=== PATIENT | male | born 1935 | race Caucasian/White ===

== ENCOUNTER 2016-06-09 04:57 | Observation (INO) | payer OTHER ==
[~2016-06-09] VITALS: Ht 165.1 cm; Wt 79.5 kg
[2016-06-09] VITALS (8 sets, daily range): BP systolic 119–159; BP diastolic 60–72; PULSE 51–98; RESP 16–18; Ht 165.1 cm; Wt 79.5 kg
[~2016-06-09 04:57] MED LIST: CRES10 PO; METO-103 PO; PRADAXA PO
[2016-06-09] MEDS ORDERED: ASPIRIN 325 MG TAB PO STA (05:04)
[2016-06-09 05:52] LABS: ADD SCAN DIFF NO
--- NOTE | 2016-06-09 05:59 | RADRPT ---
PROCEDURE: Chest. CLINICAL INDICATION: Chest pain. TECHNIQUE: Single frontal view of the chest was obtained. COMPARISON: None. FINDINGS: Mediasternotomy wires are present. The cardiac silhouette is within normal limits. The aortic arch is unremarkable. There is no focal consolidation, vascular congestion or pleural effusion. There is no pneumothorax. IMPRESSION: No evidence for active cardiopulmonary disease. .Nicholas Way MD, Date Time Electronically viewed and signed by .Nicholas Way MD, on 06/09/2016 05:58 .T/
[2016-06-09 06:01] LABS: CHLORIDE 105 mmol/L (97-110); POTASSIUM 4.5 mmol/L (3.5-5.1); SODIUM 140 mmol/L (135-144)
[2016-06-09 06:04] LABS: ANION GAP 14 (8-16); BASOPHILS % 0.2 % (0.0-2.0); CARBON DIOXIDE 26 mmol/L (21-31); CREATININE 1.67 mg/dl (0.61-1.24); EOSINOPHILS % 0.2 % (0.0-7.0); HEMATOCRIT 40.1 % (42.0-52.0); HEMOGLOBIN 13.4 g/dl (14.0-18.0); LYMPHOCYTES # 0.7 10^3/ul (0.8-2.9); LYMPHOCYTES % 7.8 % (15.0-51.0); MEAN CORPUSCULAR HEMOGLOBIN 30.7 pg (29.0-33.0); MEAN CORPUSCULAR HGB CONC 33.4 g/dl (32.0-37.0); MEAN PLATELET VOLUME 10.8 fl (7.4-10.4); MONOCYTE # 0.3 10^3/ul (0.3-0.9); MONOCYTES % 2.9 % (0.0-11.0); NEUTROPHIL # 8.3 10^3/ul (1.6-7.5); NEUTROPHILS % 88.4 % (39.0-77.0); PLATELET COUNT 211 10^3/UL (140-415); RED BLOOD COUNT 4.36 10^6/ul (4.70-6.10); RED CELL DISTRIBUTION WIDTH 11.9 % (11.5-14.5); WHITE BLOOD COUNT 9.4 10^3/ul (4.8-10.8)
[2016-06-09 06:05] LABS: BLOOD UREA NITROGEN 31 mg/dl (7-20); CALCIUM 9.4 mg/dl (8.4-10.2); GLUCOSE 157 mg/dl (70-220)
[2016-06-09 06:07] LABS: INR 1.12; PARTIAL THROMBOPLASTIN TIME 32.8 Sec (25.0-35.0); PROTIME 14.4 Sec (12.2-14.2); PT RATIO 1.1
[2016-06-09 06:19] LABS: TROPONIN-I < 0.012 ng/ml (0.00-0.12)
--- NOTE | 2016-06-09 06:46 | ERA ---
ER Documentation Chief Complaint Date/Time DATE: 06/09/16 TIME: 06:41 Chief Complaint chest pain for 5 hours, nonradiating HPI Patient is a 80-year-old male with history of prior heart attack, status post CABG, who presents with sudden onset, constant, pressure-like substernal chest pain radiating to the epigastrium that awoke him from sleep at 2 AM. The patient subsequently had 2 episodes of vomiting, but the pain did not subside. The patient was brought to the hospital by ambulance, and pain subsided at approximately 5 AM. Patient is currently pain-free. She denies having experienced dyspnea, radiation of pain, fever, cough, diarrhea, back pain. ROS All systems reviewed and are negative except as per history of present illness. Medications Home Meds Reported Medications [Pradaxa] No Conflict Check, 150 PO DAILY 07/02/11 Rosuvastatin Calcium* (Crestor*) 10 Mg Tablet, 10 MG PO DAILY 02/26/11 Metoprolol Succinate (Toprol Xl) 50 Mg Tab.sr.24h, 50 MG PO DAILY 02/26/11 Allergies Allergies: Coded Allergies: No Known Drug Allergy (Verified Allergy, Unknown, 07/09/11) PMhx/Soc Past medical history: Coronary artery disease, hypertension Past surgical history: CABG 4 Social history: Former smoker, former alcohol History of Surgery: Yes (PROSTATE BIOPSY) Anesthesia Reaction: No Hx Neurological Disorder: No Hx Respiratory Disorders: No Hx Cardiac Disorders: Yes (MD) Hx Psychiatric Problems: No Hx Miscellaneous Medical Probl: No Hx Alcohol Use: No Hx Substance Use: No Hx Tobacco Use: No Smoking Status: Former smoker FmHx Family History: No coronary disease, No diabetes Physical Exam Vitals Vital Signs Date Time Temp Pulse Resp B/P Pulse Ox O2 Delivery O2 Flow Rate FiO2 06/09/16 06:04 59 16 135/72 99 Room Air 06/09/16 05:14 Nasal Cannula 2 06/09/16 05:00 97.5 71 18 124/86 98 Physical Exam Const: Alert, no acute distress Head: Atraumatic Eyes: Normal Conjunctiva, no pallor or icterus ENT: Normal External Ears, Nose and Mouth. Neck: Full range of motion. No JVD. No meningismus. Resp: Clear to auscultation bilaterally, trace bibasilar rales, no wheeze Cardio: Regular rate and rhythm, no murmurs, no gallop, midline sternotomy scar Abd: Soft, non tender, non distended. No guarding or rebound Skin: No petechiae or rashes Back: No midline or flank tenderness Ext: No cyanosis, or edema Neur: Awake and alert, cranial nerves II through XII intact bilaterally, strength and sensation intact in 4 extremities. Psych: Normal Mood and Affect Result Diagram: 06/09/16 0510 06/09/16 0510 Results 24 hrs Laboratory Tests Test 06/09/16 05:10 White Blood Count 9.410^3/ul Red Blood Count 4.3610^6/ul Hemoglobin 13.4g/dl Hematocrit 40.1% Mean Corpuscular Volume 92.0fl Mean Corpuscular Hemoglobin 30.7pg Mean Corpuscular Hemoglobin Concent 33.4g/dl Red Cell Distribution Width 11.9% Platelet Count 64445^3/UL Mean Platelet Volume 10.8fl Neutrophils % 88.4% Lymphocytes % 7.8% Monocytes % 2.9% Eosinophils % 0.2% Basophils % 0.2% Nucleated Red Blood Cells % 0.0/100WBC Neutrophils # 8.310^3/ul Lymphocytes # 0.710^3/ul Monocytes # 0.310^3/ul Eosinophils # 0.010^3/ul Basophils # 0.010^3/ul Nucleated Red Blood Cells # 0.010^3/ul Prothrombin Time 14.4Sec Prothrombin Time Ratio 1.1 INR International Normalized Ratio 1.12 Activated Partial Thromboplast Time 32.8Sec Sodium Level 140mmol/L Potassium Level 4.5mmol/L Chloride Level 105mmol/L Carbon Dioxide Level 26mmol/L Anion Gap 14 Blood Urea Nitrogen 31mg/dl Creatinine 1.67mg/dl Glucose Level 157mg/dl Calcium Level 9.4mg/dl Troponin I < 0.012ng/ml Current Medications Medications (Trade) Dose Ordered Sig/Kia Route PRN Reason Start Time Stop Time Status Last Admin Dose Admin Aspirin (Aspirin) 325 mg ONCE STAT PO 06/09/16 05:04 06/09/16 05:05 DC 06/09/16 05:31 Procedures/MDM EKG read by me: Time 507, rate 62 Rhythm: [Normal sinus] [place]: Left axis deviation Intervals: Right bundle branch block ST-T waves: Nonspecific changes Ectopy: Occasional PVCs Q-waves: Inferior Q waves Impression: Right bundle branch block, prior inferior MD, nonspecific ST changes Chest x-ray: FINDINGS: Mediasternotomy wires are present. The cardiac silhouette is within normal limits. The aortic arch is unremarkable. There is no focal consolidation, vascular congestion or pleural effusion. There is no pneumothorax. IMPRESSION: No evidence for active cardiopulmonary disease. MDM: Patient is a 80-year-old male with history of coronary artery disease status post CABG who presents with pressure-like chest pain, single episode lasting 3 hours associated with vomiting. Patient is high risk, and there are high risk features to the patient's history. EKG has nonspecific findings and first troponin is negative, but given patient's history and lack of a recent stress test, the patient will need further cardiac workup. The patient received aspirin and nitroglycerin prior to ER arrival, and is currently chest pain-free. Discussed with Dr. Dietz, who will admit the patient to observation status. Departure Diagnosis: Primary Impression: Chest pain Qualified Code: R07.2 - Precordial pain Condition: Stable REN PATEL MD Jun 09, 2016 06:46
[2016-06-09] MEDS ORDERED: ONDANSETRON 4 MG INJ IV PRN (08:30)
[2016-06-09] MEDS ORDERED: ACETAMINOPHEN 325 MG TAB PO PRN ×2 (08:30→12:00)
--- NOTE | 2016-06-09 10:24 | CONS ---
DATE OF ADMISSION: 06/09/2016 DATE OF CONSULTATION: 06/09/2016 CARDIAC CONSULTATION HISTORY OF PRESENT ILLNESS: Mr. Cutler is a 80-year-old gentleman with history of CAD status post C ABG 4 years ago. He presents with 4 hours of chest pressure that began at 2:00 a.m. and did have so me vomiting. The patient called EMS and was given a "pill" which appears to have been nitroglycerin , and the pain was relieved. REVIEW OF SYSTEMS: Negative except as per chart. The patient reports that he does have similar sym ptoms approximately every 6 months. On last occasion, he was admitted at [facility]. He believes he had a stress test at that time but is unsure. HOME MEDICATIONS: 1. Pradaxa. 2. Metoprolol. 3. Rosuvastatin. ALLERGIES: NO KNOWN ALLERGIES. FAMILY HISTORY: No family history. PHYSICAL EXAMINATION: GENERAL: In no distress. VITAL SIGNS: Temperature 97.5, pulse 69, blood pressure 135/72, oxygen saturation 97%. LUNGS: Clear. CARDIAC: Regular rate and rhythm. No murmurs appreciated. ABDOMEN: Soft, nontender, nondistended. LABORATORY DATA: CBC reviewed. White count 9.4, hematocrit 40, platelet count 211. Sodium 140, po tassium 4.5, BUN 31, creatinine 1.6. Troponin less than 0.012. INR 1.1. DIAGNOSTIC DATA: EKG shows sinus rhythm with right bundle branch block. Chest x-ray status post CA BG, otherwise unremarkable. ASSESSMENT AND PLAN: The patient with cardiac history with chest pain. We will order echocardiogra m and serial troponins to rule out acute coronary syndrome. He reportedly had stress test 6 months ago. We will decide about repeat stress test depending on the findings of the above-mentioned tests . Dictated By: SAGE CORONEL/FELIPE Conf#: [id number] DID#: [id number]
--- NOTE | 2016-06-09 10:51 | RADRPT ---
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 Physician: JEFF STRINGER Quality: Technically Difficult Study Procedures: Transthoracic echocardiogram with complete 2D, M-Mode, and doppler examination. Indications: Chest Pain. 2D/M Mode Doppler Measurement Value Normal Ranges Measurement Value Normal Ranges LVIDd 2D 4.9 3.5 - 5.6 cm AV Peak Jose Raul 1.5 m/sec LVIDs 2D 3.5 2.1 - 4.1 cm AV Peak PG 9.0 mmHg FS 2D 30.0 % LVOT Peak Jose Raul 0.8 m/sec LVPWd 2D 1.3 0.6 - 1.1 cm LVOT Peak PG 2.0 mmHg IVSd 2D 1.3 0.6 - 1.1 cm MV E Peak Jose Raul 0.6 m/sec IVS/LVPW 2D 1.0 MV A Peak Jose Raul 1.0 m/sec AoR Diam 2D 2.6 2.0 - 3.7 cm MV E/A 0.7 LA/Ao 2D 1 0 - 1 MV Decel Time 423 msec EDV 2D 120.0 cm3 MV E/A 0.7 ESV 2D 41.1 cm3 MR Peak PG 69.0 mmHg LA Dimen 2D 3.5 2.3 - 4.0 cm MR Peak Jose Raul 4.2 m/sec PV Accel Time 85 msec Findings Left Ventricle: Normal left ventricular cavity size. Mild concentric left ventricular hypertrophy. Moderate global left ventricular systolic dysfunction. Ejection fraction is visually estimated at 35 %. Tissue Doppler/Mitral Doppler indices are consistent with impaired relaxation (Stage I diastolic dysfunction). Right Ventricle: Normal right ventricular size. Normal right ventricular systolic function. Left Atrium: Upper limit of normal left atrial size. Right Atrium: The right atrium is normal in size. Mitral Valve: Mild mitral leaflet calcification. Mild mitral annular calcification. Mild mitral valve regurgitation. Aortic Valve: Trileaflet aortic valve. Trace aortic valve regurgitation. Tricuspid Valve: Tricuspid valve not well visualized. There is trace tricuspid regurgitation. Pulmonic Valve: There is trace pulmonic regurgitation. Pericardium: Normal pericardium with no significant pericardial effusion. Aorta: Normal aortic root. IVC: Dilated IVC with respiratory collapse consistent with elevated right atrial pressure. Conclusions 1.Normal left ventricular cavity size. Mild concentric left ventricular hypertrophy. Moderate global left ventricular systolic dysfunction. Ejection fraction is visually estimated at 35 %. Tissue Doppler/Mitral Doppler indices are consistent with impaired relaxation (Stage I diastolic dysfunction). Electronically Signed By: Jeff Stringer 09-Jun-2016 10:50:52 -1900 Patient Name: GIGI PHILLIPS Study Date: 09-Jun-2016 [id number]
[2016-06-09] MEDS ORDERED: METO-448 PO (11:18)
[2016-06-09] MEDS ORDERED: LISI-313 PO (11:18)
[2016-06-09] MEDS ORDERED: DABI150C PO (11:18)
[2016-06-09] MEDS ORDERED: CRES10 PO (11:18)
[2016-06-09 11:55] LABS: CREATINE KINASE 26 IU/L (23-200)
[2016-06-09] MEDS ORDERED: morphine 2 MG INJ IV PRN (12:00)
[2016-06-09] MEDS ORDERED: LORAZEPAM 0.5 MG TAB PO PRN (12:00)
[2016-06-09] MEDS ORDERED: NACL 0.9% 3 ML SYG IV SCH (12:00)
[2016-06-09] MEDS ORDERED: NITROGLYCERIN (SL) 0.4 MG TAB SL PRN (12:00)
[2016-06-09] MEDS ORDERED: ONDANSETRON 4 MG TAB PO PRN (12:00)
[2016-06-09] MEDS ORDERED: DOCUSATE SODIUM 100 MG CAP PO PRN (12:00)
[2016-06-09 12:18] LABS: TROPONIN-I < 0.012 ng/ml (0.00-0.12)
[2016-06-09] MEDS: SOD CHLORIDE 0.45% 1,000 ML IV SCH (13:49)
[2016-06-09] MEDS: LISINOPRIL 5 MG TAB PO SCH (13:49)
--- NOTE | 2016-06-09 17:05 | HP ---
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 CHIEF COMPLAINT: Chest pain. HISTORY OF PRESENT ILLNESS: This is a pleasant 80-year-old gentleman with past medical history of m yocardial infarction, status post CABG, coronary artery disease, hypertension, dyslipidemia, whom wa s woken up at 3 a.m. on 06/09/2016 secondary to having severe anterior chest discomfort described as chest pain. The pain was in mid epigastric and substernal, nonradiating, not accompanied with any shortness of breath or diaphoresis. He called 911 and was brought into the emergency room at [facility] where his EKG showed right bundle branch block. Troponin was found to be neg ative. He was treated with aspirin 325 mg and states that by the time the patient arrived to the em ergency room, his chest pain resolved completely. He denied any other discomfort at this time. PAST MEDICAL AND SURGICAL HISTORY: As above per HPI. MEDICATIONS: 1. Pradaxa 150 mg. 2. Lisinopril 5 mg. 3. Lopressor 25 mg 4. Crestor 10 mg. ALLERGIES: NO KNOWN DRUG ALLERGIES. FAMILY HISTORY: Noncontributory secondary to advanced age. SOCIAL HISTORY: He used to smoke 5 cigarettes per day, quit about 20 years ago. No alcohol, no ill icit drugs. REVIEW OF SYSTEMS: Denies having any headache, dizziness, lightheadedness. No change in visual acu ity, diplopia, photophobia. No abdominal pain, no nausea, vomiting, diarrhea. No headache, dizzine ss. No change in the color of stool. Positive for chest pain. No shortness of breath, no diaphore sis. No heat and cold intolerance. No neck pain, no restricted range of motion in upper and lower extremity. No recent travel history. No sick contact. PHYSICAL EXAMINATION VITAL SIGNS: Temperature 97.5, pulse 60, respiration 19, blood pressure 108/60, oxygen 100% room ai r. GENERAL APPEARANCE: The patient is lying in bed comfortably without any acute distress. He is awak e, alert, oriented. He is able to answer my questions properly. EYES AND ENT: Conjunctivae and lids are normal. Pupils are normal. Extraocular normal. Hearing g rossly normal. Lips are normal. Oral mucosa is moist. NECK: Supple. Trachea is midline. No lymphadenopathy. RESPIRATORY: Effort is normal. Clear to auscultation bilaterally. CARDIOVASCULAR: Normal S1, S2. Regular rhythm and rate. No murmur, no bruits, no edema. Peripher al pulses palpable and capillary refill is normal. CHEST: Normal expansion of thorax during inspiration. GASTROINTESTINAL: Abdomen is soft, nontender, not distended. Bowel sounds present. No guarding, n o rebound. GENITOURINARY: Deferred. MUSCULOSKELETAL: Upper and lower extremities within normal limits. Full range of motion. Strength is 5/5 in both upper and lower extremities. NEUROLOGIC: Cranial nerves II through XII are grossly intact. PSYCHIATRIC: Normal judgment and insight. Alert and oriented x3. Mood and affect is normal. LABORATORY WORK AND IMAGING: WBC 9.4, hemoglobin 13.4, hematocrit 41.0, platelet 211. Sodium 140, potassium 4.1, chloride 105, bicarbonate 26, BUN 31, creatinine 1.67, glucose 157, calcium 9.4. Tro ponin negative x2. EKG shows right bundle branch block. IMAGING: Chest x-ray showed no evidence of acute cardiopulmonary disease. ASSESSMENT AND PLAN: 1. Chest pain with a history of coronary artery disease status post coronary artery bypass graft. Continue aspirin, Pradaxa, beta rachelle, statin. Cardiology has been consulted. So far, troponin x 2 has been negative. We will obtain 2D echocardiogram. Follow cardiology recommendations. 2. Essential hypertension, well controlled on medical management. 3. Dyslipidemia. Continue statin. Follow lipid panel in a.m. 4. History of coronary artery disease. Continue aggressive medical management. 5. For deep venous thrombosis prophylaxis, the patient has been placed on Lovenox. 6. For gastrointestinal prophylaxis, on proton pump inhibitor. 7. We will continue to monitor patient closely. Further recommendation, management and treatment a s per clinical course. Dictated By: CARY SARKAR MD PN/NTS Conf#: [id number] DID#: [id number]
[2016-06-09 19:30] LABS: CREATINE KINASE 24 IU/L (23-200)
[2016-06-09 19:39] LABS: CK-MB 0.41 ng/ml (0.0-2.4)
[2016-06-09 19:43] LABS: TROPONIN-I < 0.012 ng/ml (0.00-0.12)
[2016-06-09] MEDS: METOPROLOL 25 MG TAB PO SCH (20:32)
[2016-06-09] MEDS ORDERED: ATORVASTATIN 40 MG TAB PO SCH (21:00)
[2016-06-10] VITALS (8 sets, daily range): BP systolic 119–141; BP diastolic 65–73; PULSE 50–83; RESP 18–20
[2016-06-10] MEDS: SOD CHLORIDE 0.45% 1,000 ML IV SCH (05:27)
[2016-06-10] MEDS ORDERED: PANTOPRAZOLE (EC) 40 MG TAB PO SCH (06:00)
[2016-06-10 08:30] LABS: ADD SCAN DIFF NO
[2016-06-10 08:34] LABS: POTASSIUM 4.9 mmol/L (3.5-5.1)
[2016-06-10 08:36] LABS: CREATININE 1.59 mg/dl (0.61-1.24)
[2016-06-10 08:37] LABS: MAGNESIUM 1.8 mg/dl (1.7-2.5)
[2016-06-10 08:38] LABS: CHOL/HDL RATIO 5.6 RATIO
[2016-06-10 08:42] LABS: BASOPHILS % 0.5 % (0.0-2.0); EOSINOPHILS # 0.1 10^3/ul (0.0-0.5); EOSINOPHILS % 2.2 % (0.0-7.0); HEMATOCRIT 38.3 % (42.0-52.0); LYMPHOCYTES # 1.5 10^3/ul (0.8-2.9); LYMPHOCYTES % 25.5 % (15.0-51.0); MEAN CORPUSCULAR HEMOGLOBIN 31.3 pg (29.0-33.0); MEAN CORPUSCULAR HGB CONC 33.9 g/dl (32.0-37.0); MEAN CORPUSCULAR VOLUME 92.3 fl (82.0-101.0); MEAN PLATELET VOLUME 10.7 fl (7.4-10.4); MONOCYTE # 0.5 10^3/ul (0.3-0.9); MONOCYTES % 9.1 % (0.0-11.0); NEUTROPHIL # 3.7 10^3/ul (1.6-7.5); NEUTROPHILS % 62.2 % (39.0-77.0); PLATELET COUNT 178 10^3/UL (140-415); RED BLOOD COUNT 4.15 10^6/ul (4.70-6.10); RED CELL DISTRIBUTION WIDTH 12.4 % (11.5-14.5)
[2016-06-10] MEDS ORDERED: ENOXAPARIN 40 MG/0.4 ML SYG SC SCH (09:00)
[2016-06-10] MEDS ORDERED: DABIGATRAN 150 MG CAP PO SCH (09:00)
[2016-06-10] MEDS ORDERED: ASPIRIN 81 MG TAB PO SCH (09:00)
[2016-06-10] MEDS ORDERED: REGADENOSON 0.4 MG/5 ML SYG ONE (09:50)
--- NOTE | 2016-06-10 11:14 | CONS ---
Date/Time of Note Date/Time of Note DATE: 06/10/16 TIME: 11:12 Assessment/Plan Assessment/Plan Additional Assessment/Plan Chest pain CAD with history of CABG Cardiomyopathy with ejection fraction 35% Hypertension Paroxysmal atrial fibrillation -Patient denies further episodes of chest pain. Patient for nuclear cardiac perfusion study today. If results are negative for ischemia and no further symptoms, no further inpatient cardiac workup needed at the current time. Consultation Date/Type/Reason Admit Date/Time Jun 09, 2016 at 08:19 Initial Consult Date Type of Consultation: cv 24 HR Interval Summary Free Text/Dictation Patient denies further episodes of chest pain or shortness of breath. Denies dizziness or lightheadedness. Chest pain is not usually associated with activity. Exam/Review of Systems Vital Signs Vitals Vital Signs Date Time Temp Pulse Resp B/P Pulse Ox O2 Delivery O2 Flow Rate FiO2 06/10/16 08:19 54 06/10/16 07:55 97.9 20 119/65 98 06/10/16 04:28 Room Air 06/09/16 05:14 2 Intake and Output 06/09/16 06/09/16 06/10/16 15:00 23:00 07:00 Intake Total 500 ml Balance 500 ml Exam No apparent distress Constitutional: alert, oriented Head: normocephalic Neck: supple Respiratory: other (Coarse breath sounds bilaterally, no wheezing) Cardiovascular: other (S1-S2 heard), regular rate and rhythm Gastrointestinal: bowel sounds, non-tender, other (No guarding), soft Extremities: other (No edema or cyanosis) Results Result Diagram: 06/10/16 0552 06/10/16 0552 Results 24 hrs Laboratory Tests Test 06/09/16 11:35 06/09/16 18:44 06/10/16 05:52 Creatine Kinase 24 Creatine Kinase Index 1.5 1.7 Creatinine Kinase MB (Mass) 0.40 0.41 Troponin I < 0.012 < 0.012 White Blood Count 6.0 # Red Blood Count 4.15 L Hemoglobin 13.0 L Hematocrit 38.3 L Mean Corpuscular Volume 92.3 Mean Corpuscular Hemoglobin 31.3 Mean Corpuscular Hemoglobin Concent 33.9 Red Cell Distribution Width 12.4 Platelet Count 178 Mean Platelet Volume 10.7 H Neutrophils % 62.2 Lymphocytes % 25.5 Monocytes % 9.1 Eosinophils % 2.2 Basophils % 0.5 Nucleated Red Blood Cells % 0.0 Neutrophils # 3.7 Lymphocytes # 1.5 Monocytes # 0.5 Eosinophils # 0.1 Basophils # 0.0 Nucleated Red Blood Cells # 0.0 Sodium Level 138 Potassium Level 4.9 Chloride Level 107 Carbon Dioxide Level 25 Anion Gap 11 Blood Urea Nitrogen 26 H Creatinine 1.59 H Glucose Level 97 # Hemoglobin A1c 5.3 Calcium Level 9.0 Magnesium Level 1.8 Triglycerides Level 161 H Cholesterol Level 152 LDL Cholesterol, Calculated 93 HDL Cholesterol 27 L Cholesterol/HDL Ratio 5.6 Thyroid Stimulating Hormone (TSH) 0.018 L Medications Medications Current Medications Sodium Chloride (1/2 NS) 1,000 ml @ 60 mls/hr [id number] IV Last administered on 06/10/16 05:27; Admin Dose 60 MLS/HR; Start 06/09/16 at 11:58 Lorazepam (Ativan) 0.5 mg Q8H PRN PO ANXIETY; Start 06/09/16 at 12:00 Ondansetron HCl (Zofran Tab) 4 mg Q6H PRN PO NAUSEA AND/OR VOMITING; Start at 12:00 Aspirin (Aspirin) 81 mg DAILY PO ; Start 06/10/16 at 09:00 Nitroglycerin (Nitroglycerin (Sl Tab) 0.4 Mg) 1 tab Q5M PRN SL CHEST PAIN; Start 06/09/16 at 12:00 Acetaminophen (Tylenol Tab) 650 mg Q6H PRN PO PAIN LEVEL 1-3 OR FEVER; Start at 12:00 Morphine Sulfate (morphine) 1 mg Q4H PRN IV PAIN LEVEL 7-10; Start 06/09/16 at 12:00 Docusate Sodium (Colace) 100 mg Q12H PRN PO CONSTIPATION; Start 06/09/16 at 12: 00 Pantoprazole (Protonix Tab) 40 mg DAILY@06 PO ; Start 06/10/16 at 06:00 Dabigatran (PRADaxa) 150 mg BID PO ; Start 06/10/16 at 09:00 Lisinopril (Zestril) 5 mg DAILY PO Last administered on 06/09/16 13:49; Admin Dose 5 MG; Start 06/09/16 at 12:30 Metoprolol Tartrate (Lopressor) 25 mg BID PO Last administered on 06/09/16 20: 32; Admin Dose 25 MG; Start 06/09/16 at 21:00 Atorvastatin Calcium (Lipitor) 40 mg DAILY@21 PO Last administered on 20:31; Admin Dose 40 MG; Start 06/09/16 at 21:00 Cory Del Real DO Jun 10, 2016 11:14
[2016-06-10] MEDS: LISINOPRIL 5 MG TAB PO SCH (12:43)
[2016-06-10] MEDS: METOPROLOL 25 MG TAB PO SCH (12:43)
--- NOTE | 2016-06-10 15:37 | RADRPT ---
PROCEDURE: Lexiscan myocardial perfusion study CLINICAL INDICATION: 80 -year-old patient with coronary artery disease, status post CABG, complain ing of chest pain. TECHNIQUE: Lexiscan 0.4 mg intravenously separate acquisition gated myocardial perfusion SPECT usi ng Tc 99m Myoview 30.7 mCi intravenously at stress and Tc-99m Myoview, 9.9 mCi intravenously at rest was performed using the rest/stress sequence. Poststress Myoview SPECT images were obtained in the supine position. COMPARISON: No prior studies. FINDINGS: Perfusion images reveal a moderate size moderate to severe in degree nonreversible perfusion defect in the inferoapical, inferior and inferior lateral gold. Lexiscan post stress gated SPECT images demonstrate mild to moderate hypokinesis of the inferior and inferolateral gold. IMPRESSION: 1. The type and distribution of the scintigraphic abnormalities are most consistent with a moderate- sized nonreversible perfusion defect in the inferoapical, inferior and inferolateral gold. 2. Mild to moderate hypokinesis of the inferior and inferolateral gold. 3. The left ventricle ejection fraction at stress is 38%. A call report was made to Dr. Del Real at 03:35 p.m. on June 10, 2016. RPTAT: HH .Myesha Thomas MD, Date Time Electronically viewed and signed by .Myesha Thomas MD, on 06/10/2016 15:37 .L/
--- NOTE | 2016-06-10 16:08 | DS ---
Date/Time of Note Date/Time of Note DATE: 06/10/16 TIME: 16:00 Discharge Summary Admission/Discharge Info Admit Date/Time Jun 09, 2016 at 08:19 Discharge Date/Time Final Diagnosis 1. Chest pain but no ischemic changes on stress thallium test, follow up with cardiology 2. CAD with history of CABG 3. Ischemic cardiomyopathy CHF, systolic, chronic, LVEF 35%, stable, follow up with cardiology 4. Hypertension, controlled 5. Paroxysmal atrial fibrillation, sinus now, follow up with cardiology Patient Condition: Stable Procedures [place] [id number] Radiology Main Line: [phone] DIAGNOSTIC IMAGING REPORT Patient: GIGI PHILLIPS : 1935 Age: 80 Sex: M MR #: [id number] DOS: 06/10/16 0000 Ordering MD: Cory Del Real DO Location: [facility] [place] Room/Bed: [facility] PROCEDURE: Lexiscan myocardial perfusion study CLINICAL INDICATION: 80 -year-old patient with coronary artery disease, status post CABG, complaining of chest pain. TECHNIQUE: Lexiscan 0.4 mg intravenously separate acquisition gated myocardial perfusion SPECT using Tc 99m Myoview 30.7 mCi intravenously at stress and Tc-99m Myoview, 9.9 mCi intravenously at rest was performed using the rest/stress sequence. Poststress Myoview SPECT images were obtained in the supine position. COMPARISON: No prior studies. FINDINGS: Perfusion images reveal a moderate size moderate to severe in degree nonreversible perfusion defect in the inferoapical, inferior and inferior lateral gold. Lexiscan post stress gated SPECT images demonstrate mild to moderate hypokinesis of the inferior and inferolateral gold. IMPRESSION: 1. The type and distribution of the scintigraphic abnormalities are most consistent with a moderate-sized nonreversible perfusion defect in the inferoapical, inferior and inferolateral gold. 2. Mild to moderate hypokinesis of the inferior and inferolateral godl. 3. The left ventricle ejection fraction at stress is 38%. A call report was made to Dr. Del Real at 03:35 p.m. on June 10, 2016. RPTAT: HH .Myesha Thomas MD, MD Date Time Electronically viewed and signed by .Myesha Thomas MD, on 06/10/2016 15:37 .L/ CC: Cory Del Real Hospital Course This is a pleasant 80-year-old gentleman with past medical history of myocardial infarction, status post CABG, coronary artery disease, hypertension, dyslipidemia, whom was woken up at 3 a.m. on 06/09/2016 secondary to having severe anterior chest discomfort described as chest pain. The pain was in mid epigastric and substernal, nonradiating, not accompanied with any shortness of breath or diaphoresis. He called 911 and was brought into the emergency room at [facility] where his EKG showed right bundle branch block. Troponin was found to be negative. He was treated with aspirin 325 mg and states that by the time the patient arrived to the emergency room, his chest pain resolved completely. He denied any other discomfort at this time. Patient has no chest pain after the admission, negative troponin. Stress thallium test revealed a moderate to large nonreversible defect. No futher cardiac work up needed at this time. Home Meds Reported Medications Lisinopril* (Lisinopril*) 5 Mg Tablet, 5 MG PO DAILY, #30 TAB 06/09/16 Rosuvastatin Calcium* (Crestor*) 10 Mg Tablet, 10 MG PO QHS, #30 TAB 06/09/16 Dabigatran Etexilate Mesylate* (Pradaxa*) 150 Mg Capsule, 150 MG PO DAILY, CAP 06/09/16 Metoprolol Tartrate* (Lopressor*) 25 Mg Tab, 25 MG PO DAILY, #60 TAB 06/09/16 Discontinued Reported Medications [Pradaxa] No Conflict Check, 150 PO DAILY 07/02/11 Rosuvastatin Calcium* (Crestor*) 10 Mg Tablet, 10 MG PO DAILY 02/26/11 Metoprolol Succinate (Toprol Xl) 50 Mg Tab.sr.24h, 50 MG PO DAILY 02/26/11 Follow-up Plan PCP and cardiology 1-2 weeks Pending Labs Laboratory Tests Test 06/09/16 18:44 06/10/16 05:52 Creatine Kinase 24IU/L (23-200) Creatine Kinase Index 1.7 Creatinine Kinase MB (Mass) 0.41ng/ml (0.0-2.4) Troponin I < 0.012ng/ml (0.00-0.12) White Blood Count 6.010^3/ul (4.8-10.8) Red Blood Count 4.1510^6/ul (4.70-6.10) Hemoglobin 13.0g/dl (14.0-18.0) Hematocrit 38.3% (42.0-52.0) Mean Corpuscular Volume 92.3fl (82.0-101.0) Mean Corpuscular Hemoglobin 31.3pg (29.0-33.0) Mean Corpuscular Hemoglobin Concent 33.9g/dl (32.0-37.0) Red Cell Distribution Width 12.4% (11.5-14.5) Platelet Count 41504^3/UL (140-415) Mean Platelet Volume 10.7fl (7.4-10.4) Neutrophils % 62.2% (39.0-77.0) Lymphocytes % 25.5% (15.0-51.0) Monocytes % 9.1% (0.0-11.0) Eosinophils % 2.2% (0.0-7.0) Basophils % 0.5% (0.0-2.0) Nucleated Red Blood Cells % 0.0/100WBC (0.0-0.0) Neutrophils # 3.710^3/ul (1.6-7.5) Lymphocytes # 1.510^3/ul (0.8-2.9) Monocytes # 0.510^3/ul (0.3-0.9) Eosinophils # 0.110^3/ul (0.0-0.5) Basophils # 0.010^3/ul (0.0-0.1) Nucleated Red Blood Cells # 0.010^3/ul (0.0-0.0) Sodium Level 138mmol/L (135-144) Potassium Level 4.9mmol/L (3.5-5.1) Chloride Level 107mmol/L (97-110) Carbon Dioxide Level 25mmol/L (21-31) Anion Gap 11 (8-16) Blood Urea Nitrogen 26mg/dl (7-20) Creatinine 1.59mg/dl (0.61-1.24) Glucose Level 97mg/dl (70-220) Hemoglobin A1c 5.3% (0-5.9) Calcium Level 9.0mg/dl (8.4-10.2) Magnesium Level 1.8mg/dl (1.7-2.5) Triglycerides Level 161mg/dl (0-149) Cholesterol Level 152mg/dl (100-200) LDL Cholesterol, Calculated 93mg/dl HDL Cholesterol 27mg/dl (31-75) Cholesterol/HDL Ratio 5.6RATIO Thyroid Stimulating Hormone (TSH) 0.018MIU/L (0.465-4.680) JOHN GAYLE MD Jun 10, 2016 16:08
--- NOTE | 2016-06-12 15:54 | CARRPT ---
DATE OF PROCEDURE: 06/10/2016 PROCEDURE: Lexiscan nuclear stress test. PATIENT HISTORY: This is a 80-year-old male with history of coronary artery disease, presents with chest pain. FINDINGS: Baseline ECG demonstrates sinus bradycardia at 59 beats per minute, right bundle branch block, nonspecific ST-T wave abnormalities. Baseline heart rate was 59. Baseline blood pressure was 135/73. Lexiscan was administered as per protocol. Symptoms were shortness of breath, nausea and dizziness, which resolved. ECG demonstrated a brief episode of bradycardia with brief heart block with Lexiscan, nonspecific ST-T wave abnormalities, frequent PVCs. The patient's heart rate returned to normal within a few seconds. Peak heart rate was 68. Peak blood pressure was 157/65. ECG interpretation was nonischemic. The nuclear portion will be interpreted by our radiology colleagues. Dictated By: MARK BARRETO/FELIPE Conf#: [id number] DID#: [id number]
== END 2016-06-10 17:18 | disposition home or self-care (01) ==
LOC: E/R 04:57 → MS4 08:19
PROVIDERS: ADMIT Family Medicine; ATTEND Family Medicine
DX: R07.9 Chest pain, unspecified (principal); I10 Essential (primary) hypertension; E78.5 Hyperlipidemia, unspecified; I25.10 Atherosclerotic heart disease of native coronary artery without angina pectoris; Z95.1 Presence of aortocoronary bypass graft; I48.0 Paroxysmal atrial fibrillation
CPT/HCPCS: 36415; 71010; 78452; 80048; 80061; 82550; 82553; 83036; 83735; 84443; 84484; 85025; 85610; 85730; 93005; 93017; 93306; 99285; A9500; A9505; G0378; J2785; 99217